=== PATIENT | female | born 1980 | race Caucasian/White ===

== ENCOUNTER → 2017-11-13 | Outpatient (CLI) | payer OTHER ==
[2017-11-13 18:54] LABS: ALT 30 U/L (9-52); AST 24 U/L (14-36); Albumin 4.6 g/dL (3.5-5.0); Alkaline Phosphatase 85 U/L (38-126); Anion Gap 15 mmol/L; Blood Urea Nitrogen 16 mg/dL (7-17); Calcium 9.8 mg/dL (8.4-10.2); Carbon Dioxide 25 mmol/L (22-30); Chloride 103 mmol/L (98-107); Cholesterol 227 mg/dL (<200); Glucose 93 mg/dL (74-99); HDL Cholesterol 78 mg/dL (40-60); LDL Cholesterol,Calculated 128 mg/dL (0-99); Potassium 3.8 mmol/L (3.5-5.1); Sodium 143 mmol/L (137-145); Total Bilirubin 0.3 mg/dL (0.2-1.3); Total Protein 7.5 g/dL (6.3-8.2); Triglycerides 104 mg/dL (<150)
[2017-11-13 19:09] LABS: Basophils % (A) 0 %; Eosinophils # (A) 0.1 k/uL (0-0.7); Eosinophils % (A) 1 %; HGB 13.7 gm/dL (11.4-16.0); Lymphocytes % (A) 27 %; MCH 29.8 pg (25.0-35.0); MCHC 34.4 g/dL (31.0-37.0); MCV 86.6 fL (80.0-100.0); Mean Platelet Volume 8.2; Monocytes # (A) 0.5 k/uL (0-1.0); Monocytes % (A) 6 %; Neutrophils # (A) 4.8 k/uL (1.3-7.7); Neutrophils % (A) 64 %; Platelet Count 229 k/uL (150-450); RBC 4.62 m/uL (3.80-5.40); RDW 12.7 % (11.5-15.5); WBC 7.5 k/uL (3.8-10.6)
[2017-11-13 19:10] LABS: T4, Free (Free Thyroxine) 1.13 ng/dL (0.78-2.19)
== END | disposition home or self-care (01) ==
LOC: MMGSC 15:26
PROVIDERS: ATTEND Family Medicine
DX: Z00.00 Encounter for general adult medical examination without abnormal findings (principal)
CPT/HCPCS: 36415; 80053; 80061; 84439; 84443; 85025

== ENCOUNTER → 2018-05-14 | Outpatient (CLI) | payer OTHER ==
--- NOTE | 2018-05-15 05:47 | MR ---
EXAMINATION TYPE: MR shoulder RT wo con DATE OF EXAM: 05/14/2018 COMPARISON: Outside shoulder x-ray January 08, 2018. HISTORY: Right Shoulder pain per order. Pain with difficulty raising overhead for 6 months per patien t. TECHNIQUE: Multiplanar, multisequence imaging of the right shoulder is performed without contrast. FINDINGS: Rotator Cuff: Supraspinatus and infraspinatus tendons are both intact to the humeral head attachment. No suspicious signal is seen. No significant partial or full thickness retracted tear is identified. Subscapularis tendon is intact. Rotator cuff muscle bulk is preserved. Acromioclavicular Joint: Acromioclavicular joint results within normal limits. Underlying fat plane i s maintained. Distal acromion morphology is unremarkable. Glenohumeral Joint: There is mild narrowing and glenohumeral joint. No significant spurring is seen. Small physiologic joint effusion is felt present. Labrum: The labrum appears grossly intact given limitation of non-arthrogram study. Biceps Tendon: The long head of biceps is in normal location within bicipital groove. Bone marrow signal: No focal abnormal marrow signal is appreciated. Other: Small focus of fluid extends superior to the rotator cuff tendons appear coronal image 13 with additional small amount of fluid extending along superior margin of the subscapularis tendon along t he anterior margin of the scapula. IMPRESSION: No rotator cuff or labral tear is seen.
== END | disposition home or self-care (01) ==
LOC: RADMRIMAIN 16:48
PROVIDERS: ATTEND Orthopaedic Surgery
DX: M25.511 Pain in right shoulder (principal)